=== PATIENT | male | born 1960 | race Caucasian/White ===

== ENCOUNTER 2018-07-16 12:04 | Outpatient (REF) | payer MEDICAID, SELFPAY ==
[2018-07-16 19:44] LABS: Anion Gap 11.8 mmol/L (3-11); BUN 17 mg/dL (7-18); CO2 26.2 mmol/L (21.0-32.0); CREATININE 1.22 mg/dL (0.70-1.30); Calcium 9.3 mg/dL (8.5-10.1); Chloride 100 mmol/L (98-107); Cholesterol 225 mg/dL (50-200); Glucose 122 mg/dL (70-100); HDL Cholesterol 36 mg/dL (40-60); LDL CHOLESTEROL 149 mg/dL (<100); Potassium 3.9 mmol/L (3.5-5.1); Sodium 138 mmol/L (136-145); Triglyceride 242 mg/dL (30-150)
== END 2018-07-16 12:24 ==
LOC: NCHCN 12:04
PROVIDERS: PCP Specialist/Technologist Athletic Trainer; Visit Provider Specialist/Technologist Athletic Trainer
DX: E78.5 Hyperlipidemia, unspecified (principal); I10 Essential (primary) hypertension; Z00.00 Encounter for general adult medical examination without abnormal findings
CPT/HCPCS: 80048; 80061; 83721

== ENCOUNTER 2019-07-24 12:08 | Outpatient (REF) | payer MEDICAID, SELFPAY ==
[2019-07-24 22:14] LABS: ALT 44 U/L (16-63); AST 17 U/L (15-37); Albumin 4.4 g/dL (3.4-5.0); Alkaline Phosphatase 46 U/L (46-116); Anion Gap 8.1 mmol/L (3-11); BUN 22 mg/dL (7-18); Bilirubin, Total 0.7 mg/dL (0.2-1.0); CO2 27.9 mmol/L (21.0-32.0); CREATININE 1.14 mg/dL (0.70-1.30); Calcium 9.3 mg/dL (8.5-10.1); Calculated LDL 130 mg/dL; Chloride 101 mmol/L (98-107); Cholesterol 232 mg/dL (<200); Glucose 110 mg/dL (74-106); HDL Cholesterol 37 mg/dL (40-60); Hemoglobin A1C 5.6 % (4.5-6.2); Potassium 4.4 mmol/L (3.5-5.1); Sodium 137 mmol/L (136-145); Total Protein 7.8 g/dL (6.4-8.2); Triglyceride 328 mg/dL (<150)
== END 2019-07-24 12:28 ==
LOC: NCHCN 12:08
PROVIDERS: PCP Specialist/Technologist Athletic Trainer; Visit Provider Specialist/Technologist Athletic Trainer
DX: E11.9 Type 2 diabetes mellitus without complications (principal); E78.5 Hyperlipidemia, unspecified; R73.9 Hyperglycemia, unspecified; Z00.00 Encounter for general adult medical examination without abnormal findings
CPT/HCPCS: 80053; 80061; 83036

== ENCOUNTER 2020-08-09 17:45 | Outpatient (REF) | payer MEDICAID, SELFPAY ==
[2020-08-09 17:27] LABS: BUN 19 mg/dL (7-18); CREATININE 1.15 mg/dL (0.70-1.30); Chloride 102 mmol/L (98-107); Cholesterol 240 mg/dL (<200); Glucose 117 mg/dL (74-106); HDL Cholesterol 31 mg/dL (40-60); Sodium 138 mmol/L (136-145); Triglyceride 501 mg/dL (<150)
[2020-08-09 18:05] LABS: LDL CHOLESTEROL 139 mg/dL (<100)
== END 2020-08-09 18:05 ==
LOC: NCHCN 17:45
PROVIDERS: PCP Specialist/Technologist Athletic Trainer; Visit Provider Nurse Practitioner Family
DX: E78.5 Hyperlipidemia, unspecified (principal); I10 Essential (primary) hypertension
CPT/HCPCS: 80048; 80061; 83721

== ENCOUNTER 2021-08-15 14:50 | Outpatient (REF) | payer MEDICAID, SELFPAY ==
[2021-08-15 13:03] LABS: Anion Gap 9.9 mmol/L (3-11); BUN 20 mg/dL (7-18); CO2 30.1 mmol/L (21.0-32.0); CREATININE 1.1 mg/dL (0.70-1.30); Calcium 9.6 mg/dL (8.5-10.1); Calculated LDL 155 mg/dL (<100); Chloride 100 mmol/L (98-107); Cholesterol 248 mg/dL (<200); Glucose 119 mg/dL (74-106); HDL Cholesterol 38 mg/dL (40-60); Potassium 3.6 mmol/L (3.5-5.1); Sodium 140 mmol/L (136-145); Triglyceride 276 mg/dL (<150)
[2021-08-15 13:12] LABS: Uric Acid 10.7 mg/dL (3.5-7.2)
[2021-08-15 14:18] LABS: TSH (W/Ref FT4) 2.03 uIU/mL (0.36-3.74)
[2021-08-15 14:33] LABS: Vitamin D 25 Total 28.3 ng/mL (30-100)
== END 2021-08-15 14:51 | disposition home or self-care (01) ==
LOC: NCHCN 14:50
PROVIDERS: PCP Specialist/Technologist Athletic Trainer; Visit Provider Nurse Practitioner Family
DX: I10 Essential (primary) hypertension (principal); Z00.00 Encounter for general adult medical examination without abnormal findings; R78.5 Finding of other psychotropic drug in blood
CPT/HCPCS: 80048; 80061; 82306; 84443; 84550

== ENCOUNTER 2022-11-02 12:34 | Outpatient (REF) | payer MEDICAID, SELFPAY ==
[2022-11-02 17:21] LABS: Hemoglobin A1C 5.9 % (<5.7)
[2022-11-02 17:44] LABS: ALT 51 U/L (16-63); AST 21 U/L (15-37); Albumin 4.2 g/dL (3.4-5.0); Alkaline Phosphatase 44 U/L (46-116); Anion Gap 11.2 mmol/L (3-11); BUN 18 mg/dL (7-18); Bilirubin, Total 0.6 mg/dL (0.2-1.0); CO2 27.8 mmol/L (21.0-32.0); CREATININE 1.2 mg/dL (0.70-1.30); Calcium 9.4 mg/dL (8.5-10.1); Chloride 99 mmol/L (98-107); Estimated GFR 68.38 (mL/min/1.73m2); Glucose 166 mg/dL (74-106); Potassium 3.3 mmol/L (3.5-5.1); Sodium 138 mmol/L (136-145); Total Protein 7.4 g/dL (6.4-8.2); Uric Acid 8.2 mg/dL (3.5-7.2)
[2022-11-02 17:56] LABS: Calculated LDL 100 mg/dL (<100); Cholesterol 206 mg/dL (<200); HDL Cholesterol 39 mg/dL (40-60); Triglyceride 337 mg/dL (<150)
[2022-11-03 20:18] LABS: PSA, Screening 1.2 ng/mL (<=4.5)
== END 2022-11-02 12:35 | disposition home or self-care (01) ==
LOC: NCHCN 12:34
PROVIDERS: PCP Specialist/Technologist Athletic Trainer; Visit Provider Nurse Practitioner Family
DX: I10 Essential (primary) hypertension (principal); E78.5 Hyperlipidemia, unspecified; R73.03 Prediabetes; M10.9 Gout, unspecified; Z12.5 Encounter for screening for malignant neoplasm of prostate
CPT/HCPCS: 80053; 80061; 84153; 83036; 84550

== ENCOUNTER 2023-11-08 11:44 | Outpatient (REF) | payer MEDICAID, SELFPAY ==
[2023-11-08 15:51] LABS: Hemoglobin A1C 5.8 % (<5.7)
[2023-11-08 15:53] LABS: ALT 50 U/L (16-63); AST 21 U/L (15-37); Albumin 4.1 g/dL (3.4-5.0); Alkaline Phosphatase 49 U/L (46-116); Anion Gap 13.2 mmol/L (3-11); BUN 17 mg/dL (7-18); Bilirubin, Total 0.7 mg/dL (0.2-1.0); CO2 25.8 mmol/L (21.0-32.0); CREATININE 1.2 mg/dL (0.70-1.30); Calcium 9.3 mg/dL (8.5-10.1); Calculated LDL 89 mg/dL (<100); Chloride 103 mmol/L (98-107); Cholesterol 188 mg/dL (<200); Estimated GFR 67.95 (mL/min/1.73m2); Glucose 164 mg/dL (74-106); HDL Cholesterol 41 mg/dL (40-60); Potassium 3.6 mmol/L (3.5-5.1); Sodium 142 mmol/L (136-145); TSH (W/Ref FT4) 1.99 uIU/mL (0.36-3.74); Total Protein 7.9 g/dL (6.4-8.2); Triglyceride 293 mg/dL (<150)
[2023-11-08 16:07] LABS: Uric Acid 8.5 mg/dL (3.5-7.2)
[2023-11-08 16:48] LABS: Vitamin D 25 Total 26.2 ng/mL (30-100)
[2023-11-09 08:30] LABS: Hepatitis C Ab w Rflx HCV PCR Negative (Negative)
[2023-11-09 09:16] LABS: HIV-1/2 Ag & Ab Screen Negative (Negative)
== END 2023-11-08 11:45 | disposition home or self-care (01) ==
LOC: NCHCN 11:44
PROVIDERS: PCP Specialist/Technologist Athletic Trainer; Visit Provider Nurse Practitioner Family
DX: Z13.6 Encounter for screening for cardiovascular disorders (principal); Z00.00 Encounter for general adult medical examination without abnormal findings; R73.03 Prediabetes; I10 Essential (primary) hypertension; M10.9 Gout, unspecified; E06.9 Thyroiditis, unspecified
CPT/HCPCS: 80053; 80061; 82306; 86803; 87389; 83036; 84443; 84550

== ENCOUNTER 2024-11-20 14:27 | Outpatient (REF) | payer MEDICARE, MEDICAID, SELFPAY ==
[2024-11-20 19:51] LABS: ALT 49 U/L (16-63); AST 23 U/L (15-37); Albumin 4.1 g/dL (3.4-5.0); Alkaline Phosphatase 54 U/L (46-116); Anion Gap 12.6 mmol/L (3-11); BUN 18 mg/dL (7-18); Bilirubin, Total 0.5 mg/dL (0.2-1.0); CO2 27.4 mmol/L (21.0-32.0); CREATININE 1.1 mg/dL (0.70-1.30); Calcium 9.8 mg/dL (8.5-10.1); Chloride 102 mmol/L (98-107); Glucose 153 mg/dL (74-106); Potassium 3.2 mmol/L (3.5-5.1); Sodium 142 mmol/L (136-145); Total Protein 7.4 g/dL (6.4-8.2); Uric Acid 8.1 mg/dL (3.5-7.2)
== END 2024-11-20 14:28 | disposition home or self-care (01) ==
LOC: NCHCN 14:27
PROVIDERS: PCP Specialist/Technologist Athletic Trainer; Visit Provider Nurse Practitioner Family
DX: M10.9 Gout, unspecified (principal); I10 Essential (primary) hypertension
CPT/HCPCS: 80053; 84550

== ENCOUNTER 2025-01-30 22:47 | Outpatient (REF) | payer MEDICARE, MEDICAID, SELFPAY ==
[2025-01-30 15:42] LABS: Anion Gap 10.7 mmol/L (3-11); BUN 22 mg/dL (7-18); CO2 30.3 mmol/L (21.0-32.0); CREATININE 0.9 mg/dL (0.70-1.30); Calcium 9.7 mg/dL (8.5-10.1); Chloride 100 mmol/L (98-107); Creatine Kinase 224 U/L (39-308); Estimated GFR 94.78 (mL/min/1.73m2); Glucose 141 mg/dL (74-106); Potassium 3.3 mmol/L (3.5-5.1); Sodium 141 mmol/L (136-145); Uric Acid 8.4 mg/dL (3.5-7.2)
[2025-02-02 12:15] LABS: Lyme Ab w Rflx to Lyme Confirm Negative (Negative)
[2025-02-02 13:47] LABS: Anaplasma phagocytophilum Negative (Negative); B. miyamotoi PCR Negative (Negative); Babesia divergens/MO-1 Negative (Negative); Babesia duncani Negative (Negative); Babesia microti Negative (Negative); Ehrlichia chaffeensis Negative (Negative); Ehrlichia ewingii/canis Negative (Negative); Ehrlichia muris eauclairensis Negative (Negative)
== END 2025-01-30 22:48 | disposition home or self-care (01) ==
LOC: NCHCN 22:47
PROVIDERS: PCP Specialist/Technologist Athletic Trainer; Visit Provider Nurse Practitioner Family
DX: E87.6 Hypokalemia (principal); M10.9 Gout, unspecified; M79.18 Myalgia, other site
CPT/HCPCS: 80048; 82550; 87798; 84550; 86618

== ENCOUNTER 2025-02-26 18:20 | Outpatient (REF) | payer MEDICARE, MEDICAID, SELFPAY ==
[2025-02-27 09:48] LABS: Uric Acid 6.3 mg/dL (3.5-7.2)
== END 2025-02-26 18:21 | disposition home or self-care (01) ==
LOC: NCHCN 18:20
PROVIDERS: PCP Specialist/Technologist Athletic Trainer; Visit Provider Nurse Practitioner Family
DX: E79.0 Hyperuricemia without signs of inflammatory arthritis and tophaceous disease (principal)
CPT/HCPCS: 84550

== ENCOUNTER 2025-04-24 10:58 | Outpatient (REF) | payer MEDICARE, MEDICAID, SELFPAY ==
[2025-04-24 16:53] LABS: Uric Acid 4.2 mg/dL (3.5-7.2)
== END 2025-04-24 10:59 | disposition home or self-care (01) ==
LOC: NCHCN 10:58
PROVIDERS: PCP Specialist/Technologist Athletic Trainer; Visit Provider Nurse Practitioner Family
DX: M10.9 Gout, unspecified (principal); M79.672 Pain in left foot
CPT/HCPCS: 84550; 86431